=== PATIENT | female | born 1945 | race Caucasian/White ===

== ENCOUNTER 2025-01-05 06:23 | Emergency (ER) | payer MEDICARE, MEDICAID, SELFPAY ==
--- NOTE | ~2025-01-05 | CT_ITS ---
EXAMINATION: CT ABDOMEN AND PELVIS WITH CONTRAST CLINICAL INFORMATION: Vomiting. Abdominal pain. COMPARISON: None available. TECHNIQUE: Multidetector volumetric images were obtained from the superior aspect of the liver through the pubic symphysis following administration 85 mL of Omnipaque 350 intravenous contrast. Sagittal and coronal reformatted images were obtained on the technologist's workstation. Oral contrast: No This CT examination was performed using dose optimization techniques as appropriate, variously including the following: *Automated exposure control *Adjustment of mA and/or kV according to patient size (this includes techniques or standardized protocols for targeted exams where dose is matched to indication/reason for exam; i.e. extremities or head) *Use of iterative reconstruction technique. DLP: 735.5 mGy centimeter. FINDINGS: LUNG BASES: Nodular and questionable tree-in-bud morphology pattern abnormality in the right lung. Focal 4 mm groundglass nodules left lung base. LIVER, GALLBLADDER, AND BILIARY TREE: Liver measures 19 cm. Decreased enhancement pattern. No focal mass. Portal veins, hepatic veins and intrahepatic portion of the IVC are patent. No intrahepatic biliary ductal dilatation. Status post cholecystectomy. Common bile duct measures 5 mm. PANCREAS: No focal lesion. No peripancreatic fluid collection. No main pancreatic ductal dilatation. SPLEEN: 8 cm. No focal lesion. ADRENAL GLANDS: Soft tissue fullness, left adrenal gland. Right adrenal gland demonstrates no nodular lesions. KIDNEYS AND URETERS: No hydronephrosis. No gross nephrolithiasis. No gross enhancing mass. BLADDER: Fluid-filled. GASTROINTESTINAL TRACT: Numerous diverticula throughout the large intestine the majority in the sigmoid colon. Abundant stool. No wall thickening. No pericolonic edema pattern. No intestinal obstruction pattern. No ascites. No pneumoperitoneum. No peripheral enhancing fluid collections in the peritoneal cavity. I do not see the appendix. No pericecal edema pattern. ABDOMINAL WALL: Status post to mesh procedure in the right hemiabdomen with atrophy of the muscles and protrusion without herniation of the intra-abdominal contents. LYMPH NODES: Nonspecific mildly prominent in the retroperitoneum. VASCULAR: No aneurysm or dissection, abdominal aorta. Mixed plaques in the abdominal aorta and iliac arteries and the origin of the left main renal artery. PELVIC VISCERA: I do not see the uterus. OSSEOUS STRUCTURES: Multilevel thoracolumbar spondylosis and grade 1 anterolisthesis at L5-S1 and L3-4. Osteopenia versus to processes. Osteoarthrosis both hips. No acute fracture. CT/CT abdomen pelvis w IV con IMPRESSION: Concerning acute airspace disease, right lung. Diverticular disease. Hepatomegaly and likely steatosis. Multilevel thoracolumbar spondylosis. Fleischner guidelines were followed. Electronically signed by: Kenny Fitzgerald MD 01/05/2025 09:09 AM [facility]
--- NOTE | ~2025-01-05 | XR_ITS ---
EXAMINATION: XR CHEST CLINICAL INFORMATION: weakness COMPARISON: None available. TECHNIQUE: Frontal view of the chest was obtained. FINDINGS: The lungs are somewhat expanded and clear. The heart size and pulmonary vascularity is normal. No gross bony abnormality seen. XR/XR chest 1V IMPRESSION: Unremarkable chest exam. Electronically signed by: Gabriele Moran MD 01/05/2025 07:27 AM [facility]
--- NOTE | ~2025-01-05 | CT_ITS ---
EXAMINATION: CT CHEST WITH CONTRAST CLINICAL INFORMATION: Nausea. Vomiting. Shortness of breath. COMPARISON: None available. TECHNIQUE: Multidetector volumetric CT imaging of the chest was obtained after the administration of 85 mL of Omnipaque 350 intravenous contrast without immediate adverse reactions. Axial MIP volume rendering provided. Sagittal and coronal reformatted images were obtained. This CT examination was performed using dose optimization techniques as appropriate, variously including the following: *Automated exposure control *Adjustment of mA and/or kV according to patient size (this includes techniques or standardized protocols for targeted exams where dose is matched to indication/reason for exam; i.e. extremities or head) *Use of iterative reconstruction technique DLP: 288.7 mGy centimeter. 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 Poor inspiration. Right upper extremity flexed and overlapping the right upper hemithorax. Left upper extremity flexed towards the head. Patient positioning to the right in the scanner. LUNGS: Subtle less than 5 mm noncalcified pulmonary nodules in the patchy groundglass, right upper and right middle lung lobes and to a lesser extent right lower lung lobe. 4 mm groundglass nodule left lung base. No bronchiectasis. No honeycombing. Respiratory airways is grossly patent. MEDIASTINUM: No aneurysm or dissection, thoracic aorta. Normal enhancement pattern of the main pulmonary artery and its main branches. No lymphadenopathy. No pericardial effusion. PLEURA: No pleural effusion. No pneumothorax. AXILLA: No lymphadenopathy. UPPER ABDOMEN: Please refer to the CT abdomen. OSSEOUS STRUCTURES: Multilevel spondylosis and a shaped curvature which could be positional. No gross acute fracture or listhesis in the axial skeleton. Degenerative changes in both shoulders. No acute rib fracture. Sternum is intact. CT/CT chest w IV con IMPRESSION: Concerning acute airspace disease involving the right lung. Severe osteoarthrosis, both shoulders. Fleischner guidelines were followed. Electronically signed by: Kenny Fitzgerald MD 01/05/2025 09:17 AM EST
[2025-01-05 06:29] VITALS: BP 123/51; BP 164/78; PULSE 117; PULSE 130; RESP 13; TEMP 39.1; O2SAT 92; O2SAT 94; BMI 40.6
--- NOTE | 2025-01-05 06:41 | ED_ITS ---
HPI - General Adult General Chief complaint: Nausea/Vomiting/Diarrhea Stated complaint: NAUSEA, FROM [facility] Time Seen by Provider: 01/05/25 06:39 Source: patient, EMS and old records reviewed Mode of arrival: EMS Limitations: other (patient is selectively verbal) History of Present Illness ED Provider: Ximena Martinez PA-C HPI narrative: Patient is a 79 year old female with past medical history of T2DM, HTN, dysphagia, parkinsonism, and schizophrenia who presents to the ED via ambulance from [facility] for vomiting and a fever. Patient is a poor historian with limited verbal communication which is her baseline per EMS and [facility] staff. EMS states patient had one episode of vomiting this morning and was found to be febrile and tachycardic, so was transported to the ED for further evaluation. Further history difficult to obtain from patient due diminished baseline mental/verbal status. Onset (ago): hour(s) Associated symptoms: nausea/vomiting Related Data Previous Rx's ?Medication ?Instructions ?Recorded amoxicillin 875 mg-potassium 1 tab PO BID 10 days #20 tabs 01/05/25 clavulanate 125 mg tablet doxycycline hyclate 100 mg tablet 100 mg PO BID 7 days #14 tabs 01/05/25 Allergies Allergy/AdvReac Type Severity Reaction Status Date / Time No Known Allergies Allergy Verified 01/05/25 07:21 Review of Systems 2 Review of Systems: Yes Other (patient is minimally verbal at baseline) Constitutional: Constitutional: Reports as per HPI and Reports fever(s) (per [facility] Staff) Eyes: Eyes: Reports as per HPI and Reports no additional eye complaints ENT: Reports as per HPI and Reports Normal hearing present Cardiovascular: Cardiovascular: Denies dyspnea Respiratory: Respiratory: Denies cough and Denies dyspnea Gastrointestinal: Gastrointestinal: Reports no additional gastrointestinal complaints, Denies abdominal pain and Reports vomiting (1 episode witnessed by [facility] staff) Musculoskeletal: Musculoskeletal: Reports as per HPI Neurologic: Reports Normal hearing present Psychiatric: Psychiatric: Reports as per HPI Endocrine: Endocrine: Reports no additional endocrine complaints PMFSH Past Medical History Attestation statement: The following information was validated with the patient. Source: old records reviewed, nursing notes reviewed and other ([facility] staff provided additional history) Social History Social History Advance Directives: No Advance Directives Information Provided: No Do you have a plan to hurt others: No Plan Physical Exam ED Vital Signs: Vital Signs - 24 hr 01/05/25 06:29 01/05/25 07:30 01/05/25 08:56 Temperature 102.3 F H 99.0 F Pulse Rate 117 H 101 H 88 Respiratory Rate 13 24 H 16 Blood Pressure 123/51 L 129/71 113/60 Pulse Oximetry 94 93 95 Oxygen Delivery Method Room Air Room Air Room Air BMI result Body Mass Index 40.6 Const General: no acute distress, alert and awake Nutritional Appearance: well nourished Orientation/consciousness: oriented to person and oriented to place Limitations: other limitations (patient minimally verbal at baseline) HENMT Head: Yes normal to inspection and Yes atraumatic Ears: hearing grossly normal bilaterally and external ears normal General nose exam: Normal external nose present, no nasal discharge noted and no epistaxis Face and sinus: Yes normal facial exam, No abrasion and No laceration Mouth: Normal oral and palatal mucosa present, no drooling and no muffled voice Eyes General: appearance normal, both eyes and all related structures Periorbital: periorbital findings normal Eyelids: Yes eyelids normal Conjunctivae: conjunctivae normal Pupils: Equal, round and reactive pupils present EOM: EOMs intact bilaterally Neck Neck: Yes normal visual inspection, Yes full ROM and Yes no lymphadenopathy Chest Chest palpation & inspection: normal inspection of the chest Resp Effort & Inspection: normal respiratory effort and able to speak in complete sentences Auscultation: rhonchi (minimal - throughout right side) Cardio Heart sounds: S1 normal heart sound present and S2 normal heart sound present GI Inspection: Yes normal to inspection Palpation (GI): Soft to palpation Neuro General: oriented to person, oriented to place, moves all extremities and CN's II-XI intact bilaterally Cranial nerves: Yes Equal, round and reactive pupils present and Yes Normal hearing present Cognition (Neuro): abnormal cognition Extrem General: Yes normal to inspection and Yes capillary refill normal Psych Appearance: grossly normal Mental Status: mental status grossly normal Affect: normal affect Attitude: cooperative Thought process: Normal thought process present Thought content: Normal thought content present Insight: Good insight present (Psych) Medications Administered Generic Name Dose Route Start Last Admin Trade Name Freq PRN Reason Stop Dose Admin Sodium Chloride 1,000 mls @ 999 mls/hr 01/05/25 09:45 01/05/25 10:16 Ns IV 01/05/25 10:45 999 mls/hr .Q1H1M LINDY Administration Azithromycin 500 mg/ Sodium 250 mls @ 125 mls/hr 01/05/25 09:31 01/05/25 10:16 Chloride IV 01/05/25 11:30 125 mls/hr ONCE ONE Administration Discontinued Medications Generic Name Dose Route Start Last Admin Trade Name Prabhu PRN Reason Stop Dose Admin Ceftriaxone Sodium 1 gm 01/05/25 07:09 01/05/25 07:23 Ceftriaxone Sodium 1 Gm Vial IVPUSH 01/05/25 07:10 1 gm ONCE ONE Administration Acetaminophen 1,000 mg in 100 mls @ 400 mls/hr 01/05/25 06:41 01/05/25 07:23 Ofirmev IV 01/05/25 06:55 Infused ONCE ONE Infusion Iohexol 85 ml 01/05/25 08:57 01/05/25 08:58 Iohexol 350 Mg/Ml 75 Ml Infus..Btl IV 01/05/25 08:58 85 ml ONCE ONE Administration Ondansetron HCl 4 mg 01/05/25 06:41 01/05/25 07:02 Ondansetron Hcl 4 Mg/2 Ml Vial IVPUSH 01/05/25 06:42 4 mg ONCE ONE Administration Medical Decision Making Medical Decision Making MDM Narrative: Patient is a 79 year old female with past medical history of T2DM, HTN, dysphasia, parkinsonism, and schizophrenia who presents to the ED via ambulance from [facility] after 1 episode of vomiting and a fever. Patient's physical exam was as noted in the physical exam portion of this note. Patient's blood work showed an elevated WBC count of 24.3, an initial lactic acid of 2.9, with a repeat of 2.9. Patient's initial EKG showed tachycardia. Patient's chest x-ray showed no acute process. Given the patient's history of dysphasia and recent vomiting episode - I remained suspicious of a lung pathology. CT of the chest, abdomen, and pelvis showed evidence of right sided lung disease - probable pneumonia. Patient was given IV Ceftriaxone + Azithromycin as well as Tylenol. Patient's heart rate improved as well as her fever. I considered this patient to be possibly septic at 0709. Patient was not requiring oxygenation during her time in the department. I called and spoke to [facility]'s covering physician, Dr. Florian. He stated the patient could be discharged back to the facility on PO antibiotics given she was not requiring oxygenation and her vital signs were much improved. I explained my physical exam findings as well as all test results to the patient. Patient cleared for discharge back to [facility]. Differential Diagnosis Differential Diagnoses: The differential diagnosis associated with the presentation includes Pneumonia Viral illness Nausea / vomiting Admission/Observation Consideration of admission/observation: Escalation of care including admission/observation considered Patient would have been admitted to the hospital had she required oxygenation, was hypotensive, or had Dr. Florian declined to receive her back at [facility]. Consult Healthcare Provider Management of the patient was discussed with: Primary Care Provider (spoke to Dr. Florian, as noted in the MDM Rationale portion of this note.) Lab Data [facility] Lab Attestation statement: I reviewed the patient's lab results. My interpretation of these results are in the MDM Rationale portion of this note. 01/05/25 06:55 01/05/25 06:55 Labs: Lab Results 01/05/25 01/05/25 Range/Units 06:55 09:19 WBC 24.3 H (4.8-10.8) X10*3/uL RBC 4.80 (4.20-5.50) X10*6/uL Hgb 15.1 (12.0-16.0) g/dl Hct 44.1 (37.0-47.0) % MCV 91.9 (80.0-98.0) fL MCH 31.5 (27.0-33.0) pg MCHC 34.2 (31.0-35.0) g/dl RDW 14.4 (11.0-16.0) % Plt Count 300 (160-400) X10*3/uL MPV 9.4 (9.4-12.3) fL Immature Gran % (Auto) 0.7 H (0.0-0.4) % Neut % (Auto) 85.0 H (45-73) % Lymph % (Auto) 9.4 L (20-40) % [place] % (Auto) 4.3 (2-11) % Eos % (Auto) 0.4 (0-4) % Baso % (Auto) 0.2 (0-2) % Lymph # (Auto) 2.3 (1.2-4.9) X10*3/uL [place] # (Auto) 1.0 (0.1-1.2) X10*3/uL Eos # (Auto) 0.1 (0.0-0.4) X10*3/uL Baso # (Auto) 0.1 (0.0-0.2) X10*3/uL Abs Immat Gran (auto) 0.18 H (0.00-0.03) X10*3/uL Absolute Neuts (auto) 20.6 H (2.0-8.3) x10*3/uL Absolute Nucleated RBC 0.000 (0.0-0.012) X10*3/uL Nucleated RBC % (auto) 0.0 (0.0-0.2) /100WBC Smear Tech's Comments VERIFIED PT 12.0 (10.9-12.4) SEC INR 1.0 (0.9-1.1) APTT 26.0 (26.0-36.8) SEC Sodium 141 (135-145) mmol/L Potassium 4.3 (3.3-5.1) mmol/L Chloride 111 H (96-108) mmol/L Carbon Dioxide 19 L (22-29) mmol/L Anion Gap 15 (12-20) BUN 15 (9-16) mg/dL Creatinine 0.70 (0.5-1.4) mg/dL Estim Creat Clear Calc 70.7 Estimated GFR > 60 Random Glucose 180 H (60-115) mg/dL Lactic Acid 2.9 H* (0.5-2.0) mmol/L Lactic Acid F/U @ 2Hr 2.9 H* (0.5-2.0) mmol/L Calcium 8.9 (8.4-10.2) mg/dL Magnesium 1.7 (1.6-2.6) mg/dL Total Bilirubin 0.5 (0.0-1.0) mg/dL AST 31 (5-31) U/L ALT 26 (0-31) U/L Alkaline Phosphatase 78 (39-117) U/L Troponin I High Sens 3.2 (<3.5-17.0) ng/L Total Protein 7.2 (6.5-8.0) g/dL Albumin 3.6 (3.5-5.0) g/dL Influenza Type A (PCR) NEGATIVE (Negative) Influenza Type B (PCR) NEGATIVE (Negative) RSV RNA Qual (PCR) NEGATIVE (Negative) SARS-CoV-2 RNA (RT-PCR) NEGATIVE (Negative) Independent Interpretation I performed an independent interpretation of an: EKG, Plain X-Ray and CT Scan Interpretation: My interpretation is in agreement with the radiologist's impression of these imaging studies. L Report Number: [id number]: Total DLP = 736.00 mGy-cm EXAMINATION: CT ABDOMEN AND PELVIS WITH CONTRAST CLINICAL INFORMATION: Vomiting. Abdominal pain. COMPARISON: None available. TECHNIQUE: Multidetector volumetric images were obtained from the superior aspect of the liver through the pubic symphysis following administration 85 mL of Omnipaque 350 intravenous contrast. Sagittal and coronal reformatted images were obtained on the technologist's workstation. Oral contrast: No This CT examination was performed using dose optimization techniques as appropriate, variously including the following: *Automated exposure control *Adjustment of mA and/or kV according to patient size (this includes techniques or standardized protocols for targeted exams where dose is matched to indication/reason for exam; i.e. extremities or head) *Use of iterative reconstruction technique. DLP: 735.5 mGy centimeter. FINDINGS: LUNG BASES: Nodular and questionable tree-in-bud morphology pattern abnormality in the right lung. Focal 4 mm groundglass nodules left lung base. LIVER, GALLBLADDER, AND BILIARY TREE: Liver measures 19 cm. Decreased enhancement pattern. No focal mass. Portal veins, hepatic veins and intrahepatic portion of the IVC are patent. No intrahepatic biliary ductal dilatation. Status post cholecystectomy. Common bile duct measures 5 mm. PANCREAS: No focal lesion. No peripancreatic fluid collection. No main pancreatic ductal dilatation. SPLEEN: 8 cm. No focal lesion. ADRENAL GLANDS: Soft tissue fullness, left adrenal gland. Right adrenal gland demonstrates no nodular lesions. KIDNEYS AND URETERS: No hydronephrosis. No gross nephrolithiasis. No gross enhancing mass. BLADDER: Fluid-filled. GASTROINTESTINAL TRACT: Numerous diverticula throughout the large intestine the majority in the sigmoid colon. Abundant stool. No wall thickening. No pericolonic edema pattern. No intestinal obstruction pattern. No ascites. No pneumoperitoneum. No peripheral enhancing fluid collections in the peritoneal cavity. I do not see the appendix. No pericecal edema pattern. ABDOMINAL WALL: Status post to mesh procedure in the right hemiabdomen with atrophy of the muscles and protrusion without herniation of the intra-abdominal contents. LYMPH NODES: Nonspecific mildly prominent in the retroperitoneum. VASCULAR: No aneurysm or dissection, abdominal aorta. Mixed plaques in the abdominal aorta and iliac arteries and the origin of the left main renal artery. PELVIC VISCERA: I do not see the uterus. OSSEOUS STRUCTURES: Multilevel thoracolumbar spondylosis and grade 1 anterolisthesis at L5-S1 and L3-4. Osteopenia versus to processes. Osteoarthrosis both hips. No acute fracture. CT/CT abdomen pelvis w IV con IMPRESSION: Concerning acute airspace disease, right lung. Diverticular disease. Hepatomegaly and likely steatosis. Multilevel thoracolumbar spondylosis. Fleischner guidelines were followed. Electronically signed by: Kenny Fitzgerald MD 01/05/2025 09:09 AM EST Dictated By: Kenny Yo MD Signed By: Electronically signed by Kenny Liz MD 01/05/25 0909 Report Number: [id number]: Total DLP = 735.00 mGy-cm EXAMINATION: CT CHEST WITH CONTRAST CLINICAL INFORMATION: Nausea. Vomiting. Shortness of breath. COMPARISON: None available. TECHNIQUE: Multidetector volumetric CT imaging of the chest was obtained after the administration of 85 mL of Omnipaque 350 intravenous contrast without immediate adverse reactions. Axial MIP volume rendering provided. Sagittal and coronal reformatted images were obtained. This CT examination was performed using dose optimization techniques as appropriate, variously including the following: *Automated exposure control *Adjustment of mA and/or kV according to patient size (this includes techniques or standardized protocols for targeted exams where dose is matched to indication/reason for exam; i.e. extremities or head) *Use of iterative reconstruction technique DLP: 288.7 mGy centimeter. FINDINGS: CLIENT EXPERIENCE SPECIALIST: Patient's large body habitus. Poor inspiration. Right upper extremity flexed and overlapping the right upper hemithorax. Left upper extremity flexed towards the head. Patient positioning to the right in the scanner. LUNGS: Subtle less than 5 mm noncalcified pulmonary nodules in the patchy groundglass, right upper and right middle lung lobes and to a lesser extent right lower lung lobe. 4 mm groundglass nodule left lung base. No bronchiectasis. No honeycombing. Respiratory airways is grossly patent. MEDIASTINUM: No aneurysm or dissection, thoracic aorta. Normal enhancement pattern of the main pulmonary artery and its main branches. No lymphadenopathy. No pericardial effusion. PLEURA: No pleural effusion. No pneumothorax. AXILLA: No lymphadenopathy. UPPER ABDOMEN: Please refer to the CT abdomen. OSSEOUS STRUCTURES: Multilevel spondylosis and a shaped curvature which could be positional. No gross acute fracture or listhesis in the axial skeleton. Degenerative changes in both shoulders. No acute rib fracture. Sternum is intact. CT/CT chest w IV con IMPRESSION: Concerning acute airspace disease involving the right lung. Severe osteoarthrosis, both shoulders. Fleischner guidelines were followed. Electronically signed by: Kenny Fitzgerald MD 01/05/2025 09:17 AM EST RP Dictated By: Kenny Yo MD Signed By: Electronically signed by Kenny Liz MD 01/05/25 0917 EXAMINATION: XR CHEST CLINICAL INFORMATION: weakness COMPARISON: None available. TECHNIQUE: Frontal view of the chest was obtained. FINDINGS: The lungs are somewhat expanded and clear. The heart size and pulmonary vascularity is normal. No gross bony abnormality seen. XR/XR chest 1V IMPRESSION: Unremarkable chest exam. Electronically signed by: Gabriele Moran MD 01/05/2025 07:27 AM EST RP Dictated By: Gabriele Moran MD Signed By: Electronically signed by Gabriele Moran MD 01/05/25 0727 I independently interpreted this EKG and am in agreement with the below findings: Vent. Rate: 108 BPM Atrial Rate: 108 BPM P-R Int: 130 ms QRS Dur: 100 ms QT Int: 366 ms P-R-T Axes: 45 -43 24 degrees QTcB Int: 490 ms Sinus tachycardia Left axis deviation Nonspecific T wave abnormality No previous ECGs available Electronically Signed By: MIKY DILLON MD Dictated By: Miky Dillon MD Signed By: Electronically signed by Miky Dillon MD 01/05/25 0932 Radiology Impression Discussion of test interpretation with radiology: I have reviewed the radiologist's reading. Independent Historian Clinical information obtained from an independent historian. History obtained from or confirmed by: EMS (EMS provided additional history and confirmed the history provided by [facility] Staff) Prescription Management I considered prescription management with: Antibiotic (patient prescribed antibiotics for pneumonia) Chronic Conditions Patient?s care impacted by: Diabetes and Hypertension Discharge Plan Discharge Clinical Impression: Pneumonia Patient Disposition: Home, Self-Care Instructions: Pneumonia (ED) Additional Instructions: Take your medication as prescribed. Follow up with your primary care provider. Return to the emergency department immediately if your symptoms worsen or if you develop any numbness, tingling, dizziness, shortness of breath, difficulty breathing, chest pain, blurry vision, loss of vision, nausea, vomiting, abdominal pain, fever, chills, back pain, or any other complaints. Please see the information below about our Patient Portal. If you are not yet enrolled in the [facility] Patient Portal, you will receive an enrollment email invitation following your visit to any [facility] care setting. You may also self-enroll in the Patient Portal by visiting our website: [email or web address] The following information is required to access the Patient Portal: - Your [facility] Medical Record Number - Your personal home email address (must match what is in your electronic medical record, Registration staff can assist with this) - Name - Date of Capabilities of the Patient Portal: - Message some providers - View upcoming appointments - Access your health summary, medical history, and visit history - View current conditions and allergies - View procedure and lab results - View your medications, including guidelines, side effects, and precautions - Complete pre-appointment questionnaires requested by your provider - Ready summary reports of your office visits and procedures To access the Patient Portal Mobile Carly, follow these directions: - Search Ku6 in the Carly Store or [employer] Store - Download the Carly - Search for [facility] - Enter your login/password Prescriptions: New doxycycline hyclate 100 mg tablet 100 mg PO BID 7 Days Qty: 14 0RF amoxicillin-pot clavulanate 875-125 mg tablet 1 tab PO BID 10 Days Qty: 20 0RF Referrals: Elijah Florian DO [Primary Care Provider] - Print Language: Czech
--- NOTE | 2025-01-05 06:41 | ECG_ITS ---
Test Reason : WEAKNESS Blood Pressure : */* mmHG Vent. Rate : 108 BPM Atrial Rate : 108 BPM P-R Int : 130 ms QRS Dur : 100 ms QT Int : 366 ms P-R-T Axes : 45 -43 24 degrees QTcB Int : 490 ms Sinus tachycardia Left axis deviation Low voltage QRS Nonspecific T wave abnormality Abnormal ECG No previous ECGs available Referred By: Ximena Martinez Electronically Signed By: OLEKSANDR DILLON MD
[2025-01-05] MEDS: Acetaminophen 1,000 MG/100 ML PIGGYBACK 400 MG IV (07:01)
[2025-01-05] MEDS: ondansetron HCL 4 MG/2 ML VIAL IVPUSH (07:02)
[2025-01-05 07:08] LABS: Basophils Absolute Auto 0.1 X10*3/uL (0.0-0.2); Basophils Percent Auto 0.2 % (0-2); Eosinophils Absolute Auto 0.1 X10*3/uL (0.0-0.4); Eosinophils Percent Auto 0.4 % (0-4); Hematocrit 44.1 % (37.0-47.0); Hemoglobin 15.1 g/dl (12.0-16.0); Imm Gran Abs Auto 0.18 X10*3/uL (0.00-0.03); Imm Gran Pct Auto 0.7 % (0.0-0.4); Lymphocytes Absolute Auto 2.3 X10*3/uL (1.2-4.9); Lymphocytes Percent Auto 9.4 % (20-40); MANUAL DIFF FLAG SCAN; Mean Corpuscular HGB Conc 34.2 g/dl (31.0-35.0); Mean Corpuscular Hemoglobin 31.5 pg (27.0-33.0); Mean Corpuscular Volume 91.9 fL (80.0-98.0); Mean Platelet Volume 9.4 fL (9.4-12.3); Monocytes Percent Auto 4.3 % (2-11); Neutrophils Absolute Auto 20.6 x10*3/uL (2.0-8.3); Platelet Count 300 X10*3/uL (160-400); Red Cell Distribution Width 14.4 % (11.0-16.0); SCAN SMEAR FLAG 1; White Blood Count 24.3 X10*3/uL (4.8-10.8)
[2025-01-05 07:23] LABS: Alanine Aminotransferase 26 U/L (0-31); Albumin Level 3.6 g/dL (3.5-5.0); Alkaline Phosphatase 78 U/L (39-117); Anion Gap 15 (12-20); Aspartate Amino Transferase 31 U/L (5-31); Bilirubin Total 0.5 mg/dL (0.0-1.0); Blood Urea Nitrogen 15 mg/dL (9-16); Calcium 8.9 mg/dL (8.4-10.2); Carbon Dioxide 19 mmol/L (22-29); Chloride 111 mmol/L (96-108); Creatinine Clr Calc Pharmacy 70.7; Estimated Glomerular Filt Rate > 60; Glucose Random 180 mg/dL (60-115); Magnesium 1.7 mg/dL (1.6-2.6); Potassium 4.3 mmol/L (3.3-5.1); Sodium 141 mmol/L (135-145); Total Protein 7.2 g/dL (6.5-8.0)
[2025-01-05] MEDS: cefTRIAXone sodium 1 GM VIAL IVPUSH (07:23)
[2025-01-05 07:29] LABS: Lactic Acid 2.9 mmol/L (0.5-2.0)
--- OUTSIDE RECORDS SUMMARY | 2025-01-05 07:29 | XMS_ITS | Encounter Summary ---
Author Organization [facility] Address [address] [place] [address] Care Team Providers Care Senior Account Representative Name Role Phone Unavailable Primary Care Provider Unavailabl e Encounter Details Date Type Department Care Team (Late st Contact Info) Description 11/28/2024 Lab Requisition [facility] Main Lab [address] [facility] [place] [address] Elijah Florian MD [address] [place] [address] [address] [place] Type 2 diabetes mellitus without complications (CMS/HCC) Social History Tobacco Use Types Packs/Day Years Used Date Smoking Tobacco: Never Assessed Comments Unknown Sex and Gender Information Value Date Recorded Sex Assigned at Not on file Legal Sex Female 4:29 PM EDT Gender Identity Not on file Sexual Orientation Not on file documented as of this encounter Plan of Treatment Not on file documented as of this encounter Procedures Procedure Name Priority Date/Time Associated Diagnosis Comments HEMOGLOBIN A1C Routine 11/28/2024 6:49 AM EST Type 2 diabetes mellitus without complications (CMS/HCC) COMPREHENSIVE METABOLIC PANEL Routine 11/28/2024 6:49 AM EST Type 2 diabetes mellitus without complications (CMS/HCC) documented in this encounter Results * Hemoglobin A1c (11/28/2024 6:49 AM EST) Hemoglobin A1C 5.6 <6.5 % LAB CHEMISTRY METHOD 11/28/2024 1:53 PM EST [facility] Mean Bld Glu Estim. 114 mg/dL LAB CHEMISTRY METHOD 11/28/2024 1:53 PM EST [facility] Blood Venous blood specimen / Unknown 11/28/2024 6:49 AM EST 11/28/2024 8:18 AM EST us Elijah Florian MD LAB BLOOD ORDERABLES Final Resul t [facility] [address] [place] [address], * (ABNORMAL) Comprehensive metabolic panel (11/28/2024 6:49 AM EST) Sodium 139 133 - 145 mmol/L LAB CHEMISTRY METHOD 11/28/2024 9:11 AM [facility] Potassium 3.9 3.5 - 5.5 mmol/L LAB CHEMISTRY METHOD 11/28/2024 9:11 AM [facility] Chloride 107 96 - 110 mmol/L LAB CHEMISTRY METHOD 11/28/2024 9:11 AM [facility] CO2 28 21 - 32 mmol/L LAB CHEMISTRY METHOD 11/28/2024 9:11 AM [facility] Anion Gap 4 3 - 11 LAB CHEMISTRY METHOD 11/28/2024 9:11 AM [facility] Glucose 114(H) 70 - 100 mg/dL LAB CHEMISTRY METHOD 11/28/2024 9:11 AM [facility] BUN 9 5 - 25 mg/dL LAB CHEMISTRY METHOD 11/28/2024 9:11 AM [facility] Creatinine 0.46(L) 0.50 - 1.10 mg/dL LAB CHEMISTRY METHOD 11/28/2024 9:11 AM [facility] eGFR 98 >=60 mL/min/1. 73m2 LAB CHEMISTRY METHOD 11/28/2024 9:11 AM [facility] Comment:Calculation based on the??Chronic Kidney Disease Epidemiology Collaboration (CKD-EPI) equation refit??without adjustment for race. BUN/Creatinine Ratio 19.6 LAB CHEMISTRY METHOD 11/28/2024 9:11 AM [facility] Calcium 8.3(L) 8.5 - 10.5 mg/dL LAB CHEMISTRY METHOD 11/28/2024 9:11 AM EST [facility] AST (SGOT) 18 10 - 42 unit/L LAB CHEMISTRY METHOD 11/28/2024 9:11 AM [facility] ALT (SGPT) 24 10 - 60 unit/L LAB CHEMISTRY METHOD 11/28/2024 9:11 AM [facility] Alkaline Phosphatase 62 42 - 121 unit/L LAB CHEMISTRY METHOD 11/28/2024 9:11 AM [facility] Total Protein 5.8(L) 6.0 - 8.0 g/dL LAB CHEMISTRY METHOD 11/28/2024 9:11 AM [facility] Albumin 3.1(L) 3.2 - 5.0 g/dL LAB CHEMISTRY METHOD 11/28/2024 9:11 AM [facility] Total Bilirubin 0.2 0.0 - 1.4 mg/dL LAB CHEMISTRY METHOD 11/28/2024 9:11 AM [facility] Blood Venous blood specimen / Unknown 11/28/2024 6:49 AM EST 11/28/2024 8:18 AM EST us Elijah Florian MD LAB BLOOD ORDERABLES Final Resul t [facility] [address] [place] [address], documented in this encounter Visit Diagnoses Diagnosis Type 2 diabetes mellitus without complications (CMS/HCC) documented in this encounter
--- OUTSIDE RECORDS SUMMARY | 2025-01-05 07:29 | XMS_ITS | Encounter Summary ---
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 Name Role Phone Unavailable Primary Care Provider Unavailabl e Encounter Details Date Type Department Care Team (Late st Contact Info) Description 11/09/2024 Lab Requisition [facility] - Main Lab [address] [place] [address] Elijah Florian MD [address] [place] [address] [address] [place] Contact with and (suspected) exposure to covid-19; Encounter for other specified special examinations; Schizophrenia, unspecified (CMS/HCC) Social History Tobacco Use Types Packs/Day [...] Procedure Name Priority Date/Time Associated Diagnosis Comments [id number], RSV, FLU A AND B QUALITATIVE RT-PCR, LOCAL REFERENCE LAB Routine 11/09/2024 12:00 AM EST Contact with and (suspected) exposure to covid-19 Encounter for other specified special examinations Schizophrenia, unspecified (CMS/HCC) documented in this encounter Results * [id number], RSV, Influenza A and B qualitative RT-PCR (11/09/2024 12:00 AM EST) SARS COV-2 Not Detected Not Detected LAB MOLECULAR DIAGNOSTICS METHOD 11/10/2024 8:03 AM EST [facility] Comment: Disclaimer: The manner in which this information is used to guide patient care is the responsibility of the healthcare provider. Testing was performed using the [employer] m SARS-CoV-2 test. This test has been authorized by FDA under an Emergency Use Authorization (EUA). This test is only authorized for the duration of time the declaration that circumstances exist justifying the authorization of the emergency use of in vitro diagnostic tests for detection of SARS-CoV-2 virus and/or diagnosis of COVID-19 infection under section 564(b)(1) of the Act, 21 U.S.C. 360bbb- 3(b)(1), unless the authorization is terminated or revoked sooner. Fact sheet for Healthcare Providers can be found at: https://www.fda.gov/media/219321/download Fact sheet for Patients can be found at: https://www.fda.gov/media/604831/download Influenza A PCR Not Detected Not Detected LAB MOLECULAR DIAGNOSTICS METHOD 11/10/2024 8:03 AM EST [facility] LAB Influenza B PCR Not Detected Not Detected LAB MOLECULAR DIAGNOSTICS METHOD 11/10/2024 8:03 AM [facility] LAB RSV PCR Not Detected Not Detected LAB MOLECULAR DIAGNOSTICS METHOD 11/10/2024 8:03 AM [facility] LAB Swab Nasopharyngeal structure / Unknown 11/09/2024 11/09/2024 6:16 PM EST Elijah Florian MD LAB MICROBIOLOGY - GENERAL ORDER AMOS Final Result [facility] [address] [place] [address], documented in this encounter Visit Diagnoses Diagnosis Contact with and (suspected) exposure to covid-19 Encounter for other specified special examinations Schizophrenia, unspecified (CMS/HCC) documented in this encounter Additional Health Concerns Infection Onset Date Last Indicated Resolved Time Respiratory Rule-Out 11/09/2024 11/09/2024 025 8:03 AM EST documented as of this encounter
--- OUTSIDE RECORDS SUMMARY | 2025-01-05 07:29 | XMS_ITS | Clinical Summary ---
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 Name Role Phone Unavailable Primary Care Provider Unavailabl e Encounters Date Type Department Care Team Description 11/28/2024 Lab Requisition [facility] Lab [address] [place] [address] Elijah Florian MD Type 2 diabetes mellitus without complications (CMS/HCC) 11/09/2024 Lab Requisition [facility] Lab [address] [place] [address] Elijah Florian MD Contact with and (suspected) exposure to covid-19; Encounter for other specified special examinations; Schizophrenia, unspecified (CMS/HCC) from Last 3 Months Social History Tobacco Use Types Packs/Day Years Used Date Smoking Tobacco: Never Assessed Comments Unknown Sex and Gender Information Value Date Recorded Sex Assigned at Not on file Legal Sex Female 4:29 PM EDT Gender Identity Not on file Sexual Orientation Not on file Plan of Treatment Health Maintenance Due Date Last Done Comments Diabetes: Annual Foot Exam 1955 Diabetes: Annual Retina Eye Exam 1955 DTaP,Tdap,and Td Vaccines (1 - Tdap) 1965 Pneumococcal Vaccine: 50+ Ye ars (1 of 2 - PCV) 1965 Zoster Vaccines (1 of 2) 1996 RSV Immunization Patients 60 + Years Old (1 - 1-dose 75+ series) 2021 COVID-19 Vaccine ( - 2023-2 5 season) 2024 Influenza Vaccine (#1) 2024 Cholesterol Screening (Lipid Panel) 11/10/2024 Depression Screening 11/10/2024 Falls Risk Assessment 11/10/2024 Hepatitis C Screening 11/10/2024 Medicare Annual Wellness Visit 11/10/2024 Osteoporosis Screening (Bone Density Screening) 11/10/2024 Social Influencers of Health Screening 11/10/2024 Diabetes: Annual Urine Albumin-Creatinine Ratio (uACR) 11/28/2024 Diabetes: Blood Sugar Contro l Test (HGBA1C) 05/28/2025 11/28/2024 Diabetes: Annual GFR (Glomer ular Filtration Rate) 11/28/2025 11/28/2024 HIB Vaccines Aged Out No longer eligi ble based on patient's age to complete this topic HPV Vaccines Aged Out No longer eligi ble based on patient's age to complete this topic Hepatitis A Vaccines Aged Out No long er eligible based on patient's age to complete this topic Hepatitis B Vaccines Aged Out No long er eligible based on patient's age to complete this topic IPV Vaccines Aged Out No longer eligi ble based on patient's age to complete this topic MMR Vaccines Aged Out No longer eligi ble based on patient's age to complete this topic Meningococcal ACWY Vaccine Aged Out N o longer eligible based on patient's age to complete this topic Meningococcal B Vacine Aged Out No lo nger eligible based on patient's age to complete this topic RSV Immunization Patients Un soto 20 months Aged Out No longer eligible b ased on patient's age to complete this topic Varicella Vaccines Aged Out No longer eligible based on patient's age to complete this topic Procedures Procedure Name Priority Date/Time Associated Diagnosis Comments HEMOGLOBIN A1C Routine 11/28/2024 6:49 AM EST Type 2 diabetes mellitus without complications ([facility]/HCC) COMPREHENSIVE METABOLIC PANEL Routine 11/28/2024 6:49 AM EST Type 2 diabetes mellitus without complications (CMS/HCC) [id number], RSV, FLU A AND B QUALITATIVE RT-PCR, LOCAL REFERENCE LAB Routine 11/09/2024 12:00 AM EST Contact with and (suspected) exposure to covid-19 Encounter for other specified special examinations Schizophrenia, unspecified (CMS/HCC) from Last 3 Months Results * Hemoglobin A1c (11/28/2024 6:49 AM EST) Hemoglobin A1C 5.6 <6.5 % LAB CHEMISTRY METHOD 11/28/2024 1:53 PM [facility] Mean Bld Glu Estim. 114 mg/dL LAB CHEMISTRY METHOD 11/28/2024 1:53 PM [facility] Blood Venous blood specimen / Unknown 11/28/2024 6:49 AM EST 11/28/2024 8:18 AM EST us Elijah Florian MD LAB BLOOD ORDERABLES Final Resul t [facility] [address] [place] [address], [place] [phone] * (ABNORMAL) Comprehensive metabolic panel (11/28/2024 6:49 AM EST) Sodium 139 133 - 145 mmol/L LAB CHEMISTRY METHOD 11/28/2024 9:11 AM [facility] Potassium 3.9 3.5 - 5.5 mmol/L LAB CHEMISTRY METHOD 11/28/2024 9:11 AM [facility] Chloride 107 96 - 110 mmol/L LAB CHEMISTRY METHOD 11/28/2024 9:11 AM [facility] CO2 28 21 - 32 mmol/L LAB CHEMISTRY METHOD 11/28/2024 9:11 AM [facility] Anion Gap 4 3 - 11 LAB CHEMISTRY METHOD 11/28/2024 9:11 AM [facility] Glucose 114(H) 70 - 100 mg/dL LAB CHEMISTRY METHOD 11/28/2024 9:11 AM [facility] BUN 9 5 - 25 mg/dL LAB CHEMISTRY METHOD 11/28/2024 9:11 AM [facility] Creatinine 0.46(L) 0.50 - 1.10 mg/dL LAB CHEMISTRY METHOD 11/28/2024 9:11 AM [facility] eGFR 98 >=60 mL/min/1. 73m2 LAB CHEMISTRY METHOD 11/28/2024 9:11 AM [facility] Comment:Calculation based on the??Chronic Kidney Disease Epidemiology Collaboration (CKD-EPI) equation refit??without adjustment for race. BUN/Creatinine Ratio 19.6 LAB CHEMISTRY METHOD 11/28/2024 9:11 AM [facility] Calcium 8.3(L) 8.5 - 10.5 mg/dL LAB CHEMISTRY METHOD 11/28/2024 9:11 AM [facility] AST (SGOT) 18 10 - 42 unit/L LAB CHEMISTRY METHOD 11/28/2024 9:11 AM [facility] ALT (SGPT) 24 10 - 60 unit/L LAB CHEMISTRY METHOD 11/28/2024 9:11 AM [facility] Alkaline Phosphatase 62 42 - 121 unit/L LAB CHEMISTRY METHOD 11/28/2024 9:11 AM [facility] Total Protein 5.8(L) 6.0 - 8.0 g/dL LAB CHEMISTRY METHOD 11/28/2024 9:11 AM [facility] Albumin 3.1(L) 3.2 - 5.0 g/dL LAB CHEMISTRY METHOD 11/28/2024 9:11 AM [facility] Total Bilirubin 0.2 0.0 - 1.4 mg/dL LAB CHEMISTRY METHOD 11/28/2024 9:11 AM [facility] Blood Venous blood specimen / Unknown 11/28/2024 6:49 AM EST 11/28/2024 8:18 AM EST us Elijah Florian MD LAB BLOOD ORDERABLES Final Resul t [facility] [address] [place] [address], * [id number], RSV, Influenza A and B qualitative RT-PCR (11/09/2024 12:00 AM EST) SARS COV-2 Not Detected Not Detected LAB MOLECULAR DIAGNOSTICS METHOD 11/10/2024 8:03 AM [facility] Comment: Disclaimer: The manner in which this information is used to guide patient care is the responsibility of the healthcare provider. Testing was performed using the [employer] m SARS-CoV-2 test. This test has been [...] for Healthcare Providers can be found at: https://www.fda.gov/media/604877/download Fact sheet for Patients can be found at: https://www.fda.gov/media/223918/download Influenza A PCR Not Detected Not Detected LAB MOLECULAR DIAGNOSTICS METHOD 11/10/2024 8:03 AM [facility] Influenza B PCR Not Detected Not Detected LAB MOLECULAR DIAGNOSTICS METHOD 11/10/2024 8:03 AM [facility] RSV PCR Not Detected Not Detected LAB MOLECULAR DIAGNOSTICS METHOD 11/10/2024 8:03 AM [facility] Swab Nasopharyngeal structure / Unknown 11/09/2024 11/09/2024 6:16 PM EST us Elijah Florian MD LAB MICROBIOLOGY - GENERAL ORDER AMOS Final Result [facility] [address] [place] [address], from Last 3 Months Insurance MEDICAID - [place] MEDICARE
[2025-01-05 07:30] VITALS: BP 129/71; PULSE 101; RESP 24; O2SAT 93
[2025-01-05 07:33] LABS: Troponin-I High Sensitivity 3.2 ng/L (<3.5-17.0)
[2025-01-05 07:34] LABS: SLIDE REVIEW VERIFIED
[2025-01-05 07:40] LABS: Influenza A PCR NEGATIVE (Negative); Influenza B PCR NEGATIVE (Negative); Resp Syncy Virus RNA Qual PCR NEGATIVE (Negative); SARS COV2 PCR INHOUSE NEGATIVE (Negative)
[2025-01-05 08:56] VITALS: BP 113/60; PULSE 88; RESP 16; TEMP 37.2; O2SAT 95
[2025-01-05] MEDS: iohexoL 350 MG/ML 75 ML INFUS..BTL 85 ML IV (08:58)
[2025-01-05 08:59] LABS: Reflex Lactate? Lactic Acid Added
[2025-01-05 09:43] LABS: ~Lactic Acid-LAB USE ONLY 2.9 mmol/L (0.5-2.0)
[2025-01-05] MEDS: Azithromycin 500 MG in 0.9 % Sodium Chloride 250 ML 125 MG IV (10:16)
[2025-01-05] MEDS: 0.9 % Sodium Chloride 1,000 ML 999 ML IV (10:16)
[2025-01-05 11:22] LABS: Reflex Lactate? 2 Y
== END 2025-01-05 12:51 ==
PROVIDERS: Physician Assistant Medical; Emergency Provider Emergency Medicine; PCP Hospitalist
DX: J18.9 Pneumonia, unspecified organism (principal); R11.2 Nausea with vomiting, unspecified; R50.9 Fever, unspecified; R00.0 Tachycardia, unspecified; R06.02 Shortness of breath; I10 Essential (primary) hypertension; E11.9 Type 2 diabetes mellitus without complications; Z79.899 Other long term (current) drug therapy; Z03.818 Encounter for observation for suspected exposure to other biological agents ruled out
CPT/HCPCS: 0241U; 36415; 71045; 71260; 74177; 80053; 83605; 83735; 84484; 85025; 85610; 85730; 87040; 93005; 96361; 96365; 96375; 99285; J0131; J0456; J0696; J2405; Q9967

== ENCOUNTER → 2025-01-05 06:41 | Outpatient (BNV) | payer MEDICARE, MEDICAID, SELFPAY | PROVIDERS: Emergency Provider Emergency Medicine; PCP Hospitalist; Visit Provider Internal Medicine Cardiovascular Disease | DX: R00.0 Tachycardia, unspecified (principal) | CPT/HCPCS: 93010 ==

== ENCOUNTER → 2025-01-05 06:41 | Outpatient (BNV) | payer MEDICARE, MEDICAID, SELFPAY | PROVIDERS: Emergency Provider Emergency Medicine; PCP Hospitalist; Visit Provider Radiology Diagnostic Radiology | DX: R53.1 Weakness (principal); R06.02 Shortness of breath; R10.9 Unspecified abdominal pain | CPT/HCPCS: 71045; 71260; 74177 ==